=== PATIENT | female | born 1985 | race Asian ===

== ENCOUNTER 2017-05-04 07:18 | Emergency (ER) | payer OTHER ==
[~2017-05-04] VITALS: Ht 160 cm; Wt 51.8 kg
[2017-05-04 07:40] VITALS: BP 124/80
== END 2017-05-04 08:46 | disposition home or self-care (01) ==
LOC: EEVIPCON 07:18 → EMS 07:23
DX: T15.92XA Foreign body on external eye, part unspecified, left eye, initial encounter (principal); T15.91XA Foreign body on external eye, part unspecified, right eye, initial encounter; X58.XXXA Exposure to other specified factors, initial encounter; Y93.89 Activity, other specified; Y92.89 Other specified places as the place of occurrence of the external cause; Y99.8 Other external cause status
CPT/HCPCS: 99281